=== PATIENT | female | born 2005 | race Caucasian/White ===

== ENCOUNTER 2023-08-26 13:44 | Emergency (ER) | payer SELFPAY ==
[2023-08-26 16:00] LABS: CORONAVIRUS COVID-19 NAA NEGATIVE (NEGATIVE); INFLUENZA A NAA POSITIVE (NEGATIVE); INFLUENZA B NAA NEGATIVE (NEGATIVE); RESPIRATORY SYNCYTIAL VIR NAA NEGATIVE (NEGATIVE)
[2023-08-26] MEDS ORDERED: Ibuprofen 800 MG Tab PO ONE (16:21)
[2023-08-26] MEDS ORDERED: Acetaminophen 325 MG Tab PO ONE (16:21)
== END 2023-08-26 16:31 | disposition home or self-care (01) ==
LOC: MW.ED 13:44
DX: J10.1 Influenza due to other identified influenza virus with other respiratory manifestations (principal); Z20.822 Contact with and (suspected) exposure to COVID-19
CPT/HCPCS: 0241U; 87651; 99283; A9270

== ENCOUNTER 2023-11-22 16:37 | Emergency (ER) | payer OTHER ==
[2023-11-22] MEDS: Diphtheria,Pertussis(Acell),Tetanus Vaccine 0.5 ML Syringe IM ONE (17:47)
[2023-11-22] MEDS: Acetaminophen/HYDROcodone 325-5 MG Tab PO ONE (17:47)
[2023-11-22] MEDS: Bacitracin Oint 1 GM U/D Packet TOP ONE (17:47)
[2023-11-22] MEDS: Cyclobenzaprine 10 MG Tab PO ONE (17:48)
[2023-11-22] MEDS: Ibuprofen 600 MG Tab PO ONE (17:48)
[2023-11-22] MEDS: Cephalexin 500 MG Cap PO ONE (18:37)
== END 2023-11-22 19:14 | disposition home or self-care (01) ==
LOC: MW.ED 16:37
DX: S62.636A Displaced fracture of distal phalanx of right little finger, initial encounter for closed fracture (principal); S53.401A Unspecified sprain of right elbow, initial encounter; S63.501A Unspecified sprain of right wrist, initial encounter; S63.92XA Sprain of unspecified part of left wrist and hand, initial encounter; S40.011A Contusion of right shoulder, initial encounter; S60.511A Abrasion of right hand, initial encounter; Z23 Encounter for immunization; Z75.8 Other problems related to medical facilities and other health care; V89.2XXA Person injured in unspecified motor-vehicle accident, traffic, initial encounter
CPT/HCPCS: 73030; 73070; 73090; 73110; 73130; 73140; 90471; 90715; 99284; A9270